=== PATIENT | male | born 1995 ===

== ENCOUNTER → 2017-04-07 | Day surgery (SDC) | payer OTHER ==
[~2017-04-07] MED LIST: BUPIVACAINE HCL 0.5 % INJ/PF 30 ML SDV ONE; METHYLPREDNISOLONE ACETATE INJ 40 MG/1 ML ML ONE
--- NOTE | 2017-04-07 15:56 | RADIOLOGY REPORT (SQ) ---
EXAM DESCRIPTION: INJECT/ASPIR HIP/SHLDR/KNEE; FLUORO/NEEDLE PLACEMENT COMPLETED DATE/TIME: 04/07/2017 3:42 pm; 04/07/2017 3:41 pm REASON FOR STUDY: Z98.890 OTHER SPECIFIED POSTPROCEDURAL STATES; Z98.890 OTHER SPECIFIED POSTPROCEDU RAL STATES M25.552 PAIN IN LEFT HIP M25.552 PAIN IN LEFT HIP Z98.890 OTHER SPECIFIED POSTPROCEDURAL STATES COMPARISON: None. FLUOROSCOPY TIME: 11 seconds One fluoroscopic digital image saved to PACS. LIMITATIONS: None. PROCEDURE: SITE OF INJECTION: Left hip LOCALIZING CONTRAST TYPE AND DOSE: 1 mL omnipaque 300 MEDICATION TYPE AND DOSE: 80 mL depo medrol, 5 mL 0.5% bupivicaine Using local anesthesia and sterile technique with fluoroscopic guidance, the needle was advanced into the joint. Iodinated contrast was injected to verify intraarticular placement. This was followed by therapeutic injection of the indicated medications. The needle was removed. There were no immediat e complications. Preprocedure pain level: 6/10. Postprocedure pain level: 2/10. IMPRESSION: THERAPEUTIC INJECTION OF THE LEFT HIP JOINT ABOVE. COMMENT: Patient medication list reviewed: Yes- Quality ID# [id number]:Eligible professional attests to doc umenting in the medical record they obtained, updated, or reviewed the patient's current medications. . Quality ID [id number]: Final reports for procedures using fluoroscopy that document radiation exposure brittany jayy, or exposure time and number of fluorographic images (if radiation exposure indices are not avail able) TECHNICAL DOCUMENTATION: JOB ID: [id number] [employer]- All Rights Reserved
== END ==
LOC: RAD 14:49
PROVIDERS: ATTEND Orthopaedic Surgery Sports Medicine
PROC: 3E0U33Z Introduction of Anti-inflammatory into Joints, Percutaneous Approach (ICD-10-PCS; principal; 2017-04-07)
DX: M25.552 Pain in left hip (principal); Z98.890 Other specified postprocedural states
CPT/HCPCS: 20610; 77002; J3490; J1020